=== PATIENT | male | born 1975 | race Caucasian/White ===

== ENCOUNTER 2017-07-20 08:01 | Inpatient (IN) | payer BC, OTHER ==
[~2017-07-20] VITALS: Ht 177.8 cm; Wt 72.6 kg
[2017-07-21] MEDS ORDERED: MAGNESIUM HYDROXIDE 30 ML LIQUID UDC PO PRN (01:45)
[2017-07-21] MEDS ORDERED: CLONIDINE HCL 0.1 MG TABLET PO PRN (01:45)
[2017-07-21] MEDS ORDERED: ONDANSETRON 4 MG/2 ML VIAL IM PRN (01:45)
[2017-07-21] MEDS ORDERED: BUPRENORPHINE HCL 2 MG TAB.SUBL SL PRN (01:45)
[2017-07-21] MEDS ORDERED: DICYCLOMINE HCL 20 MG TABLET PO PRN (01:45)
[2017-07-21] MEDS ORDERED: HYDROXYZINE PAMOATE 25 MG CAPSULE PO PRN (01:45)
[2017-07-21] MEDS ORDERED: LOPERAMIDE HCL 2 MG CAPSULE PO PRN ×2 (01:45)
[2017-07-21] MEDS ORDERED: THIAMINE HCL 200 MG/2 ML VIAL IM ONE (01:45)
[2017-07-21] MEDS ORDERED: MAG HYDROX/AL HYDROX/SIMETH 30 ML LIQUID UDC PO PRN (01:45)
[2017-07-21] MEDS ORDERED: ONDANSETRON ODT 4 MG TAB.RAPDIS SL PRN (01:45)
[2017-07-21] MEDS ORDERED: ACETAMINOPHEN 325 MG TABLET PO PRN (01:45)
[2017-07-21] MEDS ORDERED: LORAZEPAM 2 MG/1 ML VIAL IM PRN (01:45)
[2017-07-21] MEDS ORDERED: LORAZEPAM 1 MG TABLET PO PRN (01:45)
[2017-07-21] MEDS ORDERED: MIRALAX 17 GM POWD.PACK PO PRN (01:45)
[2017-07-21] MEDS ORDERED: IBUPROFEN 400 MG TABLET PO PRN (01:45)
--- NOTE | 2017-07-21 01:45 | NUR ---
Pre-admission assessment Patient is a 42-year old, male, seen at intake, AAOx4, no SOB and no anxiety noted at this time. Discussed with patient admission policies of the unit. Patient is coherent and able to respond to questions appropriately. Patient reported that he arrived via plan at [facility] from [place]. Pt is ambulatory with steady gait. Pt reports that he has been using these substance daily: Vodka or Ana M 750 ml daily, Percocet 2 of the 15 mg pills twice per week and Mollies 1 gm on average every weekend. Vital signs taken and as follows: UV=458/94, P=95, O2 sat on RA=96%, RR=20, T=98.4. Pt verbalized instructions and teachings regarding disposal of narcotic and other controlled home meds, unit protocols such as taking of vital signs Q4H and handling and disposal of contraband.
[2017-07-21 02:15] VITALS: BP 154/87
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
[2017-07-21 02:18] LABS: BASOPHILS # (AUTO) 0.1 K/uL (0.0-8.0); BASOPHILS % (AUTO) 0.7 % (0.0-2.0); EOSINOPHILS # (AUTO) 0.1 K/uL (0.0-0.7); EOSINOPHILS % (AUTO) 1.1 % (0.0-7.0); HEMATOCRIT 40.3 % (36.7-47.1); HEMOGLOBIN 13.9 g/dL (12.5-16.3); LYMPHOCYTES # (AUTO) 3.7 K/uL (20.0-40.0); LYMPHOCYTES % (AUTO) 35.7 % (20.5-51.5); MEAN CORPUSCULAR HEMOGLOBIN 30.9 uug (23.8-33.4); MEAN CORPUSCULAR HGB CONC 34 g/dL (32.5-36.3); MEAN CORPUSCULAR VOLUME 89.6 fL (73.0-96.2); MONOCYTES # (AUTO) 1.1 K/uL (2.0-10.0); MONOCYTES % (AUTO) 10.1 % (0.0-11.0); NEUTROPHILS # (AUTO) 5.5 K/uL (1.8-8.9); NEUTROPHILS % (AUTO) 52.4 % (38.5-71.5); PLATELET COUNT (AUTO) 265 K/uL (152-348); WHITE BLOOD COUNT (AUTO) 10.5 K/uL (3.6-10.2)
[2017-07-21 02:31] LABS: ALANINE AMINOTRANSFERASE 33 U/L (16-63); ALKALINE PHOSPHATASE 94 U/L (50-136); AMYLASE 37 U/L (25-115); ASPARTATE AMINOTRANSFERASE 22 U/L (15-37); BILIRUBIN,TOTAL 0.5 mg/dL (0.2-1.0); CARBON DIOXIDE 31 mmol/L (21-32); CHLORIDE 99 mmol/L (98-107); CREATININE 0.9 mg/dL (0.6-1.3); GLUCOSE 130 mg/dL (74-106); LIPASE 132 U/L (73-393); MAGNESIUM 1.9 mg/dL (1.8-2.4); POTASSIUM 3.8 mmol/L (3.5-5.1); TOTAL PROTEIN, SERUM 7.9 g/dL (6.4-8.2); UREA NITROGEN, BLOOD 22 mg/dL (7-18)
[2017-07-21 02:32] LABS: ETHANOL < 3 MG/DL (0-0)
[2017-07-21 02:35] LABS: *AMPHETAMINE, URINE NEGATIVE (NEGATIVE); *BARBITURATE, URINE NEGATIVE (NEGATIVE); *CANNABINOID, URINE NEGATIVE (NEGATIVE); *COCCAINE, URINE NEGATIVE (NEGATIVE); *OPIATE, URINE POSITIVE (NEGATIVE); *PHENCYCLIDINE SCREEN,URINE NEGATIVE (NEGATIVE)
[2017-07-21 02:40] LABS: THYROID STIMULATING HORMONE 3.497 mIU/mL (0.358-3.740)
[2017-07-21] MEDS: LORAZEPAM 1 MG TABLET PO PRN ×2 (03:21→08:45)
[2017-07-21] MEDS: METHOCARBAMOL 750 MG TABLET PO PRN (03:21)
[2017-07-21] MEDS: diphenhydrAMINE 50 MG CAPSULE PO PRN ×2 (03:21→20:39)
--- NOTE | 2017-07-21 03:24 | NUR ---
RN note PRN Ativan, Benadryl and Robaxin Pt with CIWA of 7 and noted to be increasingly anxious. Pt also complains of inability to sleep and generalized muscle spasms=6/10. Administered Ativan 1 mg PO PRN, Benadryl 50 mg PO and Robaxine 750 mg PO. Will reassess.
[2017-07-21] MEDS ORDERED: METHOCARBAMOL 750 MG TABLET ONE (03:33)
[2017-07-21] MEDS ORDERED: LORAZEPAM 1 MG TABLET ONE (03:33)
[2017-07-21] MEDS ORDERED: diphenhydrAMINE 50 MG CAPSULE ONE (03:34)
[2017-07-21 04:00] VITALS: BP 122/83
--- NOTE | 2017-07-21 04:25 | NUR ---
RN note reassess Pt asleep on bed, no facial grimacing nor SOB noted.
--- NOTE | 2017-07-21 07:11 | NUR ---
End of Shift Patient is admitted for Alcohol and Opiates dependence. Pt is AAOx4 and with no anxiety noted at this time. No facial grimacing observed. Pt is ambulatory with steady gait. No SOB noted. On PRN Ativan and PRN Subutex. Dr. Mcwilliams to evaluate patient for taper this morning. Fall, universal, seizure and safety prec in place. Call light within reach. Latest COWS=7, CIWA=5, slept for 2 hours. Endorsed to AM shift nurse for continuity of care.
--- NOTE | 2017-07-21 07:12 | NUR ---
Start of Shift Notes: Received endorsement from night nurse. Patient is currently in his room. Appears drowsy upon waking. Respirations even and unlabored. No SOB noted. Skin warm and dry to touch. Abdomen soft and non-distended with (+) BS in all 4 quadrants. No complains of N/V/D or constipation noted. Voids independently. Ambulatory ad scott with steady gait. Patient is a 42 year old male admitted for ETOH and opiate dependence. Has past medical hx of anxiety, depression, bipolar disorder. NKA. FULL CODE. Regular diet. On fall and seizure precautions. Educated patient on his current plan of care for the day and his medication regimen. Encouraged oral fluid intake and encouraged group participation to learn new skills to prevent relapse. Will continue to monitor closely.
[2017-07-21 08:00] VITALS: BP 114/71
[2017-07-21] MEDS: THIAMINE HCL 100 MG TABLET PO SCH (08:45)
[2017-07-21] MEDS: MULTIVITAMINS,THERAPEUTIC TABLET PO SCH (08:45)
[2017-07-21] MEDS: FOLIC ACID 1 MG TABLET PO SCH (08:45)
--- NOTE | 2017-07-21 08:45 | NUR ---
Ativan 1 mg PO PRN given: Patient noted with CIWA 5 showing anxiety, sweats and tremors. No S/I or H/I noted. No AV hallucinations noted. Medicated patient with Ativan 1 mg PO as ordered per CIWA score. Will monitor for effectiveness.
--- NOTE | 2017-07-21 09:45 | NUR ---
Re-assessment: Ativan 1 mg CIWA 2, patient noted with less anxiety and less sweating noted. However, BUE tremors still visible while at rest.
[2017-07-21 12:00] VITALS: BP 130/95
--- NOTE | 2017-07-21 12:36 | NUR ---
Therapist prompted client to come into group today. Client agreed to attend.
[2017-07-21] MEDS: LORAZEPAM 1 MG TABLET PO SCH ×3 (12:42→20:39)
[2017-07-21] MEDS ORDERED: NICOTINE 14 MG/24HR PATCH TD PRN (13:30)
[2017-07-21] MEDS ORDERED: NICOTINE POLACRILEX 4 MG GUM-PK OF TEN BC PRN (13:30)
[2017-07-21 16:00] VITALS: BP 124/89
--- NOTE | 2017-07-21 19:01 | NUR ---
End of Shift Notes: Patient initiated a 5-day Ativan taper today to manage ETOH withdrawal symptoms. On PRN Subutex for opiate withdrawal. VS monitored closely. No significant abnormalities noted. Withdrawal symptoms were closely monitored. Initial COWS 3/CIWA 8, patient presented with anxiety, tremors, agitation and sweating. Medicated patient with Ativan 1 mg PO as ordered per CIWA score with help after 1 hour. Last COWS 2/CIWA 6. Patient was unable to participate in group and therapy due to his withdrawal symptoms. Compliant with care and treatment. All needs met and attended. Will continue to monitor closely.
--- NOTE | 2017-07-21 19:45 | NUR ---
Start of Shift Notes Received 42 y/o male px admitted on 07/21/2017 for opiates and ETOH. Px has NKA on FULL CODE and on Regular diet. Respirations even and unlabored. No SOB noted. Ambulatory ad scott with steady gait. Px has past medical hx of anxiety, depression, bipolar disorder. On fall and seizure precautions. During the rounds at 1945, px reported anxiety is moderate, light headedness and sweats. Encouraged oral fluid intake of 2-3 L or as tolerated. We'll continue to monitor.
[2017-07-21 20:00] VITALS: BP 140/97
--- NOTE | 2017-07-21 20:39 | NUR ---
Benadryl PRN Px requested for Benadryl to help him sleep. Benadryl 50 mg/cap, 1 cap given PO as PRN med. We'll continue to monitor.
[2017-07-22] VITALS: BP 132/89
[2017-07-22 04:00] VITALS: BP 128/81
--- NOTE | 2017-07-22 04:00 | NUR ---
COWS and CIWA deferred COWS and CIWA deferred at 0000 and 0400 due to the px is asleep, to assess if the px is awake per doctor's order. We'll continue to monitor.
--- NOTE | 2017-07-22 07:11 | NUR ---
End of Shift Notes 42 y/o male px admitted on 07/21/2017 for opiates and ETOH. Px has NKA on FULL CODE and on Regular diet. Respirations even and unlabored. No SOB noted. Ambulatory ad scott with steady gait. Px has past medical hx of anxiety, depression, bipolar disorder. On fall and seizure precautions. During the shift, px reported anxiety is moderate, light headedness and sweats. [id number], Px requested for Benadryl to help him sleep. Benadryl 50 mg/cap, 1 cap given PO as PRN med. Encouraged oral fluid intake of 2-3 L or as tolerated. Oral intake of 1 L, voided 2x, no BM. Slept for 8.5 hours. Bed on lowest position, side rails up 2x, and call light within reach. We'll continue to monitor.
--- NOTE | 2017-07-22 07:20 | NUR ---
Start of Shift Notes: Received endorsement from night nurse. Patient is currently in his room. Appears drowsy upon waking. Respirations even and unlabored. No SOB noted. Skin warm and dry to touch. Abdomen soft and non-distended with (+) BS in all 4 quadrants. No complains of N/V/D or constipation noted. Voids independently. Ambulatory ad scott with steady gait. Patient is a 42 year old male admitted for ETOH and opiate dependence who was placed on a 5-day Ativan taper as ordered. Has past medical hx of anxiety, depression, bipolar disorder. NKA. FULL CODE. Regular diet. On fall and seizure precautions. Educated patient on his current plan of care for the day and his medication regimen. Encouraged oral fluid intake and encouraged group participation to learn new skills to prevent relapse. Will continue to monitor closely.
[2017-07-22 08:00] VITALS: BP 134/92
[2017-07-22] MEDS: FOLIC ACID 1 MG TABLET PO SCH (08:39)
[2017-07-22] MEDS: THIAMINE HCL 100 MG TABLET PO SCH (08:39)
[2017-07-22] MEDS: LORAZEPAM 1 MG TABLET PO SCH ×3 (08:39→21:27)
[2017-07-22] MEDS: MULTIVITAMINS,THERAPEUTIC TABLET PO SCH (08:39)
[2017-07-22] MEDS ORDERED: TUBERCULIN,PURIF.PROT.DERIV. 5 TU/0.1 ML TEST ID ONE (09:00)
[2017-07-22 12:00] VITALS: BP 131/87
[2017-07-22 14:07] LABS: HEPATITIS B SURFACE AG Negative (Negative)
[2017-07-22] MEDS: GABAPENTIN 300 MG CAPSULE PO SCH ×2 (14:11→21:28)
[2017-07-22] MEDS ORDERED: LORAZEPAM 1 MG TABLET PO PRN ×2 (15:45)
[2017-07-22 16:00] VITALS: BP 136/92
--- NOTE | 2017-07-22 19:03 | NUR ---
End of Shift Notes: Patient continues to be on 5-day Ativan taper as ordered. No adverse reactions noted. On PRN Subutex for opiate withdrawal. VS monitored closely. No significant abnormalities noted. Withdrawal symptoms were closely monitored. Initial COWS 3/CIWA 7, patient presented with anxiety, tremors, agitation and sweating.. Last COWS 2/CIWA 4. Patient was able to participate in group and therapy despite his withdrawal symptoms. Compliant with care and treatment. All needs met and attended. Will continue to monitor closely.
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
[2017-07-22 20:00] VITALS: BP 139/98
[2017-07-22] MEDS: CLONIDINE HCL 0.1 MG TABLET PO SCH (21:28)
[2017-07-23] VITALS: BP 110/67
[2017-07-23 04:00] VITALS: BP 112/71
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
--- NOTE | 2017-07-23 07:27 | NUR ---
BEGINNING OF SHIFT Patient endorsement report received from wood planer nurse, all pertinent information discussed. Patient is a 42 year old female admitted on 07/21/2017. With admitting Dx: etoh/Opiate dependence. Patient continues on a 5 day Ativan taper as ordered, and PRN subutex as ordered and is currently scheduled to begin day 3 of Ativan taper. Patient received no PRN medications during wood planer. Patient slept for 7 hours with last ciwa score of: 1, last cow: 2. Patient skin is intact. Fall and seizure precautions observed at all times. Patient received in bed with eyes closed and respirations even and unlabored. Will educate patient regarding plan of care for the day and medication regimen. will monitor closely.
[2017-07-23 08:27] VITALS: BP 116/72
[2017-07-23] MEDS: GABAPENTIN 300 MG CAPSULE PO SCH ×3 (08:41→20:47)
[2017-07-23] MEDS: MULTIVITAMINS,THERAPEUTIC TABLET PO SCH (08:41)
[2017-07-23] MEDS: FOLIC ACID 1 MG TABLET PO SCH (08:41)
[2017-07-23] MEDS: LORAZEPAM 1 MG TABLET PO SCH ×3 (08:41→20:47)
[2017-07-23] MEDS: THIAMINE HCL 100 MG TABLET PO SCH (08:41)
[2017-07-23] MEDS: CLONIDINE HCL 0.1 MG TABLET PO SCH ×2 (08:42→20:47)
[2017-07-23 09:46] LABS: BASOPHILS % (AUTO) 0.4 % (0.0-2.0); EOSINOPHILS # (AUTO) 0.1 K/uL (0.0-0.7); EOSINOPHILS % (AUTO) 0.9 % (0.0-7.0); LYMPHOCYTES # (AUTO) 2.9 K/uL (20.0-40.0); LYMPHOCYTES % (AUTO) 30.1 % (20.5-51.5); MEAN CORPUSCULAR HEMOGLOBIN 30.7 uug (23.8-33.4); MEAN CORPUSCULAR HGB CONC 34 g/dL (32.5-36.3); MEAN CORPUSCULAR VOLUME 89.9 fL (73.0-96.2); MONOCYTES # (AUTO) 0.8 K/uL (2.0-10.0); MONOCYTES % (AUTO) 8.4 % (0.0-11.0); NEUTROPHILS # (AUTO) 5.7 K/uL (1.8-8.9); NEUTROPHILS % (AUTO) 60.2 % (38.5-71.5); PLATELET COUNT (AUTO) 265 K/uL (152-348); RED BLOOD CELL COUNT(AUTO) 4.56 MIL/uL (4.06-5.63); WHITE BLOOD COUNT (AUTO) 9.6 K/uL (3.6-10.2)
[2017-07-23 09:59] LABS: CREATININE 0.8 mg/dL (0.6-1.3); MAGNESIUM 1.8 mg/dL (1.8-2.4); POTASSIUM 4.3 mmol/L (3.5-5.1)
[2017-07-23 13:00] VITALS: BP 145/88
[2017-07-23 17:48] VITALS: BP 132/89
--- NOTE | 2017-07-23 19:05 | NUR ---
END OF SHIFT Patient alert and oriented x4, vital signs WNL during shift. Patient compliant with therapeutic plan of care. Admitting Dx: etoh dependence and continues on 5 day Ativan taper as ordered, no Subutex administered during shift. Patient received no PRN medications, all due medications were administered as ordered, well tolerated. Patient presented with: elevated heart rate, anxiety, and, mild agitation with ciwa score of: 2, cow score of: 2. 0900 CIWA:2, COW: 2; 1300 CIWA: 2, COW: 2; 1700 CIWA: 2, COW: 2. Encouraged patient to increase PO fluid intake as tolerated, to facilitate detox. Encouraged patient to attend group therapies/sessions to learn new coping skills to prevent relapse. patient noted attending and participating, denies SI/HI. Safety measures in place. call light kept with in reach. all needs met and rendered, call light kept with in reach. Safety measures in place. Patient endorsed to pellet press operator nurse, all pertinent information discussed.
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
[2017-07-23 20:00] VITALS: BP 130/87
--- NOTE | 2017-07-24 | NUR ---
COWS, CIWA deferred, Vitals refused: Pt in bed with eyes closed. Respirations even and unlabored. RR: 18. Unable to assess CIWA. Will continue to monitor.
--- NOTE | 2017-07-24 04:00 | NUR ---
COWS, CIWA deferred, Vitals refused: Pt in bed with eyes closed. Respirations even and unlabored. RR: 16. Unable to assess CIWA. Will continue to monitor.
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
--- NOTE | 2017-07-24 07:33 | NUR ---
BEGINNING OF SHIFT Patient endorsement report received from cage shift manager nurse, all pertinent information discussed. Patient is a 42 year old male admitted on 07/21/2017. With admitting Dx: etoh/Opiate dependence. Patient continues on a 5 day Ativan taper as ordered, and PRN subutex as ordered and is currently scheduled to begin day 4 of Ativan taper. Patient received no PRN medications during cage shift manager. Patient slept for 6 hours with last ciwa score of: 2, last cow: 2. Patient skin is intact. Fall and seizure precautions observed at all times. Patient received in bed with eyes closed and respirations even and unlabored. Will educate patient regarding plan of care for the day and medication regimen. will monitor closely.
[2017-07-24 08:14] VITALS: BP 118/82
[2017-07-24] MEDS: LORAZEPAM 1 MG TABLET PO SCH ×2 (09:05→20:22)
[2017-07-24] MEDS: THIAMINE HCL 100 MG TABLET PO SCH (09:05)
[2017-07-24] MEDS: GABAPENTIN 300 MG CAPSULE PO SCH ×3 (09:05→20:22)
[2017-07-24] MEDS: MULTIVITAMINS,THERAPEUTIC TABLET PO SCH (09:05)
[2017-07-24] MEDS: FOLIC ACID 1 MG TABLET PO SCH (09:06)
[2017-07-24] MEDS: CLONIDINE HCL 0.1 MG TABLET PO SCH ×2 (09:06→20:23)
[2017-07-24 12:44] VITALS: BP 132/95
--- NOTE | 2017-07-24 16:29 | NUR ---
PRN CLONIDINE Patient reports feeling increase in anxiety and feeling agitated, provided patient with non pharmacological interventions with no relief, administered clonidine 0.1mg PO As ordered, will monitor effectiveness. current bp: 140/92. hr: 95.
[2017-07-24 16:47] VITALS: BP 140/92
--- NOTE | 2017-07-24 17:01 | NUR ---
Therapist provided patient with some educational materials, as he stated that he wanted to learn more about AA. He also wanted AA meeting information for when he returns home and these were provided to him. He was appreciative of the information given.
--- NOTE | 2017-07-24 17:29 | NUR ---
CLONIDINE REASSESSMENT Patient reports feeling less anxious, and less agitated, medication effective. bp: 138/90 hr: 92. will continue to monitor.
--- NOTE | 2017-07-24 19:07 | NUR ---
END OF SHIFT Patient alert and oriented x4, vital signs WNL during shift. Patient compliant with therapeutic plan of care. Admitting Dx: etoh dependence and continues on 5 day Ativan taper as ordered, no Subutex administered during shift, patient currently on day 4 of taper, well tolerated, no ASE noted. Patient received PRN: clonidine during shift, medication was effective one hour post administration. During shift Patient presented with: elevated heart rate, anxiety, and, mild agitation. 0900 CIWA:1, COW: 2; 1300 CIWA: 1, COW: 2; 1700 CIWA: 3, COW: 3. Encouraged patient to increase PO fluid intake as tolerated, to facilitate detox. Encouraged patient to attend group therapies/sessions to learn new coping skills to prevent relapse. patient noted attending and participating, denies SI/HI. Safety measures in place. call light kept with in reach. all needs met and rendered, call light kept with in reach. Safety measures in place. Patient endorsed to band sawyer nurse, all pertinent information discussed.
[2017-07-24 20:00] VITALS: BP 132/88
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
[2017-07-24] MEDS: METHOCARBAMOL 750 MG TABLET PO PRN (20:23)
--- NOTE | 2017-07-24 20:23 | NUR ---
PRN ROBAXIN ADMINISTRATION PATIENT C/O RIGHT LEG PAIN 5/10. WILL MONITOR FOR EFFECTIVENESS.
--- NOTE | 2017-07-24 21:23 | NUR ---
PRN ROBAXIN RE-ASSESSMENT PATIENT STATES ROBAXIN IS HELPFUL AND EFFECTIVE. NO PAIN AT THIS TIME. WILL CONTINUE TO MONITOR
[2017-07-24] MEDS: diphenhydrAMINE 50 MG CAPSULE PO PRN (21:29)
--- NOTE | 2017-07-24 21:29 | NUR ---
PRN BENADRYL ADMINISTRATION PATIENT REQUESTS FOR SLEEP AID. WILL MONITOR FOR EFFECTIVENESS
--- NOTE | 2017-07-24 22:29 | NUR ---
PRN BENADRYL RE-ASSESSMENT PATIENT IN BED WITH EYES CLOSED. RESPIRATION EVEN AND UNLABORED. SAFETY MEASURES IN PLACE. CALL LIGHT IN REACH. WILL CONTINUE TO MONITOR.
--- NOTE | 2017-07-25 | NUR ---
COWS/CIWA DEFERRED PATIENT SLEEPING. COWS/CIWA DEFERRED. REFUSED VS. RESPIRATION EVEN AND UNLABORED. SAFETY MEASURES IN PLACE. CALL LIGHT IN REACH. WILL CONTINUE TO MONITOR.
--- NOTE | 2017-07-25 01:30 | NUR ---
VISTARIL HELD PATIENT'S VISTARIL HELD DUE TO PATIENT SLEEPING. WILL CONTINUE TO MONITOR
--- NOTE | 2017-07-25 04:00 | NUR ---
COWS/CIWA DEFERRED PATIENT SLEEPING. COWS/CIWA DEFERRED. REFUSED VS. RESPIRATION EVEN AND UNLABORED. SAFETY MEASURES IN PLACE. CALL LIGHT IN REACH. WILL CONTINUE TO MONITOR.
--- NOTE | 2017-07-25 05:30 | NUR ---
VISTARIL HELD PATIENT'S VISTARIL HELD DUE TO PATIENT SLEEPING. WILL CONTINUE TO MONITOR
--- NOTE | 2017-07-25 07:10 | NUR ---
END OF SHIFT NOTE PATIENT SLEPT 7 HOURS. FLUID INTAKE 860 ML. VOIDED X 1. BM X 1. PATIENT IS A 39 YEAR OLD MALE ADMITTED FOR ETOH DEPENDENCE. CONTINUE PATIENT IS ON ATIVAN TAPER, TOLERATED WELL AND NO ADVERSE REACTION . PATIENT PRESENT WITH ANXIETY, SLIGHT TREMORS, SWEATING, SWEATING, NO N/V BEGINNING OF SHIFT. APPETITE IS GOOD AND HAD BOWEL MOVEMENT. PATIENT COMPLIANT WITH MEDICATIONS. ENCOURAGE PATIENT TO ATTEND GROUPS. PATIENT WAS GIVEN PRN SLEEP MEDS. ON FALL/SEIZURE PRECAUTION. SAFETY MEASURES IN PLACE. CALL LIGHT IN REACH. WILL CONTINUE TO MONITOR. LAST CI 7. Addendum: 07/25/17 at 0711 by DIMPLE BRANDON LVN ERROR
--- NOTE | 2017-07-25 07:11 | NUR ---
END OF SHIFT NOTE PATIENT SLEPT 7 HOURS. FLUID INTAKE 1,387 ML VOIDED X . 3. NO BM. CONTINUE ON ATIVAN TAPER, TOLERATED WELL AND NO ADVERSE REACTION FOR ALCOHOL AND OPIATE DEPENDENCE. PATIENT PRESENT WITH ANXIETY, FLUSHED, IRRITABLE , NO NV AND PAIN ON RIGHT LEG BEGINNING OF SHIFT. PATIENT COMPLIANT WITH MEDICATIONS . PATIENT WAS GIVEN PRN BENADRYL FOR SLEEP. PATIENT COMPLIANT WITH TREATMENT PLAN. ENCOURAGE FLUIDS. ON FALL/SEIZURE PRECAUTION. SAFETY MEASURES IN PLACE. CALL LIGHT IN REACH. WILL CONTINUE TO MONITOR. LAST COWS 5 AND CIWA 4.
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
[2017-07-25] MEDS: THIAMINE HCL 100 MG TABLET PO SCH (08:38)
[2017-07-25] MEDS: GABAPENTIN 300 MG CAPSULE PO SCH ×3 (08:39→20:49)
[2017-07-25] MEDS: CLONIDINE HCL 0.1 MG TABLET PO SCH ×2 (08:39→20:49)
[2017-07-25] MEDS: FOLIC ACID 1 MG TABLET PO SCH (08:39)
[2017-07-25] MEDS: MULTIVITAMINS,THERAPEUTIC TABLET PO SCH (08:39)
[2017-07-25 08:44] VITALS: BP 116/78
[2017-07-25] MEDS ORDERED: LORAZEPAM 1 MG TABLET PO SCH (09:00)
[2017-07-25 12:00] VITALS: BP 124/87
[2017-07-25 16:00] VITALS: BP 120/88
--- NOTE | 2017-07-25 18:38 | NUR ---
End of shift ; Patient is AOX4. Patient remained compliant with treatment plan and medication regime. Medications noted to be effective in reducing withdrawal symptoms. Patient participated in group therapies and activates. Patient is medically cleared for discharge tomorrow to be transferred to [facility]. All safety measures secured. Met all needs.
[2017-07-25 20:00] VITALS: BP 134/92
--- NOTE | 2017-07-25 20:00 | NUR ---
STAR OF SHIFT NOTE RECEIVED REPORT FROM DAY SHIFT NURSE. PATIENT IS 42 YEAR OLD MALE ADMITTED FOR ETOH/OPIATE DEPENDENCE. PATIENT COMPLETED 5 DAY ATIVAN TAPER, TOLERATED WELL AND NO ADVERSE REACTION. PATIENT IS MEDICALLY CLEARED TO BE DISCHARGE TOMORROW. PATIENT DID NOT REQUIRE ANY PRN MEDICATION. LAST COWS 2 AND CIWA 2. RECEIVED PATIENT IN THE ROOM, PATIENT STATES HES ANXIOUS DUE TO HIM LEAVING. RELAXATION TECHNIQUE PROVIDED AND POSITIVE ENCOURAGEMENT GIVEN. SAFETY MEASURES IN PLACE. CALL LIGHT IN REACH. WILL CONTINUE TO MONITOR
[2017-07-25] MEDS ORDERED: CLON0.1T14 PO (21:42)
[2017-07-25] MEDS ORDERED: DICY20TA28 PO (21:42)
[2017-07-25] MEDS ORDERED: GABA-534 PO ×2 (21:42)
[2017-07-25] MEDS ORDERED: DIPH50CA37 PO (21:42)
[2017-07-25] MEDS: diphenhydrAMINE 50 MG CAPSULE PO PRN (22:25)
--- NOTE | 2017-07-25 22:25 | NUR ---
PRN BENADRYL ADMINISTRATION PATIENT REQUESTS FOR SLEEP AID. WILL MONITOR FOR EFFECTIVENESS
--- NOTE | 2017-07-25 23:25 | NUR ---
PRN BLAISEADRYL RE-ASSESSMENT PATIENT IN BED WITH EYES CLOSED. RESPIRATION EVEN AND UNLABORED. WILL CONTINUE TO MONITOR.
--- NOTE | 2017-07-26 | NUR ---
COWS AND CIWA DEFERRED PATIENT SLEEPING. COWS AND CIWA DEFERRED. VS REFUSED. RESPIRATION EVEN AND UNLABORED. SAFETY MEASURES IN PLACE. CALL LIGHT IN REACH. WILL CONTINUE TO MONITOR
--- NOTE | 2017-07-26 07:13 | NUR ---
END OF SHIFT NOTE PATIENT SLEPT 4 HOURS. FLUID INTAKE 1,000 ML. VOIDED X 2. NO BM. PATIENT COMPLETED 5 DAY ATIVAN TAPER, TOLERATED WELL AND NO ADVERSE REACTION. PATIENT IS MEDICALLY CLEARED TO BE DISCHARGE TODAY. PATIENT COMPLIANT WITH MEDICATION AND TREATMENT PLAN. PATIENT WAS ANXIOUS DUE TO HIM LEAVING , BEGINNING OF SHIFT , RELAXATION TECHNIQUE PROVIDED AND POSITIVE ENCOURAGEMENT GIVEN. PATIENT WAS GIVEN PRN BENADRYL SLEEP. SAFETY MEASURES IN PLACE. CALL LIGHT IN REACH. WILL CONTINUE TO MONITOR. LAST COWS 2 AND CIWA 1.
--- NOTE | 2017-07-26 07:40 | NUR ---
START OF SHIFT Ongoing nurse endorse client, he is in bed, a/o x 4, he presents with anxious mood. He reports some anxiety due to discharge today. Discuss discharge instructions with client, he verbalized understating and stated, "Ok, I get it, now I feel better."Client was admitted to [facility] for withdrawal from alcohol, he completed 5 day Ativan taper, tolerated well, with no ASE. Last CIWA 1PRN Benadryl 50mg PO for inability to sleep, he slept 4 hrs. NKA. Bed in lowest/locked position, side rails x 2 up/padded. Call light within reach. Will continue to monitor.
[2017-07-26 08:05] VITALS: BP 118/87
[2017-07-26] MEDS: GABAPENTIN 300 MG CAPSULE PO SCH (08:23)
[2017-07-26] MEDS: THIAMINE HCL 100 MG TABLET PO SCH (08:23)
[2017-07-26] MEDS: MULTIVITAMINS,THERAPEUTIC TABLET PO SCH (08:23)
[2017-07-26] MEDS: FOLIC ACID 1 MG TABLET PO SCH (08:23)
[2017-07-26 08:25] VITALS: BP 118/87
[2017-07-26] MEDS: CLONIDINE HCL 0.1 MG TABLET PO SCH (08:25)
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
== END 2017-07-26 09:35 | disposition other institution (70) | DRG 895 ==
LOC: SRC 07-21 01:31
PROVIDERS: ADMIT Internal Medicine; ATTEND Internal Medicine
PROC: HZ41ZZZ Group Counseling for Substance Abuse Treatment, Behavioral (ICD-10-PCS; principal; 2017-07-21)
PROC: HZ2ZZZZ Detoxification Services for Substance Abuse Treatment (ICD-10-PCS; principal; 2017-07-21)
PROC: HZ31ZZZ Individual Counseling for Substance Abuse Treatment, Behavioral (ICD-10-PCS; 2017-07-23)
DX: F10.230 Alcohol dependence with withdrawal, uncomplicated (principal); I15.9 Secondary hypertension, unspecified; F39 Unspecified mood [affective] disorder; E86.0 Dehydration; F14.10 Cocaine abuse, uncomplicated; F17.210 Nicotine dependence, cigarettes, uncomplicated; F41.9 Anxiety disorder, unspecified; Y90.0 Blood alcohol level of less than 20 mg/100 ml; Z81.1 Family history of alcohol abuse and dependence; Z83.3 Family history of diabetes mellitus; Z81.3 Family history of other psychoactive substance abuse and dependence; Z91.89 Other specified personal risk factors, not elsewhere classified; F16.10 Hallucinogen abuse, uncomplicated; R79.89 Other specified abnormal findings of blood chemistry; F11.90 Opioid use, unspecified, uncomplicated; D72.823 Leukemoid reaction
CPT/HCPCS: 36415; 70030-TC; 80307; 83690; 83735; 84443; 85025; 86580; 86592; 86705; 86803; 87340; 87806; A4663; G0480; Q0163